=== PATIENT | male | born 1995 | race Caucasian/White ===

== ENCOUNTER 2020-07-19 21:02 | Emergency (ER) | payer MEDICAID, SELFPAY ==
[2020-07-19 21:12] VITALS: BP 143/79; PULSE 96; RESP 18; TEMP 36.6; O2SAT 100; BMI 25.2
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
[2020-07-19 22:25] LABS: MANUAL DIFF FLAG NO
[2020-07-19 22:27] LABS: Basophils Percent Auto 0.4 % (0-2); Eosinophils Absolute Auto 0.1 X10*3/uL (0.0-0.4); Eosinophils Percent Auto 0.5 % (0-4); Hematocrit 49.7 % (42-52); Hemoglobin 16.7 g/dl (14.0-18.0); Imm Gran Abs Auto 0.05 X10*3/uL (0.00-0.03); Imm Gran Pct Auto 0.5 % (0.0-0.4); Lymphocytes Absolute Auto 1.4 X10*3/uL (1.2-4.9); Mean Corpuscular HGB Conc 33.6 g/dl (31.0-36.0); Mean Corpuscular Volume 86.4 fL (80-98); Mean Platelet Volume 9.3 fL (9.4-12.4); Monocytes Absolute Auto 0.9 X10*3/uL (0.1-1.2); Monocytes Percent Auto 8.2 % (2-11); Neutrophils Absolute Auto 8.5 X10*3/uL (2.0-8.3); Neutrophils Percent Auto 77.4 % (45-73); Platelet Count 330 X10*3/uL (160-400); Red Blood Count 5.75 X10*6/uL (4.60-5.80); Red Cell Distribution Width 12.6 % (11.0-16.0); White Blood Count 10.9 X10*3/uL (4.8-10.8)
[2020-07-19] MEDS: Magnesium Hydrox/Alum Hydrox 30 ML ORAL.SUSP PO (22:29)
[2020-07-19] MEDS: Lidocaine HCl Viscous 2 % 15 ML SOLUTION 10 ML MUCOUS MEM (22:29)
[2020-07-19] MEDS: hydrOXYzine HCL 50 MG TABLET PO (22:29)
[2020-07-19 22:55] LABS: Ethanol < 10 mg/dL
[2020-07-19 22:57] LABS: Alanine Aminotransferase 9 U/L (0-40); Albumin Level 4.8 g/dL (3.5-5.0); Alkaline Phosphatase 59 U/L (39-117); Anion Gap 17 (12-20); Aspartate Amino Transferase 14 U/L (5-37); Bilirubin Total 0.6 mg/dL (0.0-1.0); Blood Urea Nitrogen 15 mg/dL (9-16); Calcium 9.5 mg/dL (8.4-10.2); Carbon Dioxide 23 mmol/L (22-29); Chloride 104 mmol/L (96-108); Creatinine Clr Calc Pharmacy 107.4; Estimated Glomerular Filt Rate > 60; Glucose Random 107 mg/dL (60-115); Sodium 140 mmol/L (135-145); Total Protein 8.4 g/dL (6.5-8.0)
[2020-07-20 00:37] VITALS: BP 128/65; PULSE 66; RESP 16; O2SAT 98
--- NOTE | 2020-07-20 02:07 | MHC.CARE ---
Pt referred to N, called and confirmed with Lisa.
[2020-07-20 04:00] VITALS: RESP 18
[2020-07-20 07:40] VITALS: RESP 16
[2020-07-20] MEDS: Nicotine 21 MG PATCH.TD24 TRANSDERMA (13:19)
[2020-07-20] MEDS: LORazepam 1 MG TABLET 2 MG PO ×2 (13:22→17:32)
--- NOTE | 2020-07-20 13:23 | PC.NURSE ---
Pt medicated w/ PRN ativan r/t anxiety
[2020-07-20 14:00] VITALS: RESP 16
[2020-07-20 16:49] VITALS: BP 118/59; PULSE 82; RESP 18; TEMP 36.9
[2020-07-20 18:02] LABS: Amphetamine Screen Urine Not Detected (Not Detect); Barbiturates, Urine Not Detected (Not Detect); Benzodiazepines Screen Urine Not Detected (Not Detect); Cannabinoid Screen Urine POSITIVE (Not Detect); Cocaine Screen Urine Not Detected (Not Detect); Opiate Screen Urine Not Detected (Not Detect); Phencyclidine Screen Urine Not Detected (Not Detect)
--- NOTE | 2020-07-20 19:30 | PC.NURSE ---
Patient just got transferred from main ED, ambulatory w/o gait deficit, wanted to see N clinician as soon as possible, patient made aware of the process, currently watching TV, no distress observed/reported, will continue to monitor.
[2020-07-20 20:47] LABS: COVID-19 Test Negative (Negative)
[2020-07-20 22:22] VITALS: BP 129/82; PULSE 86; RESP 17; TEMP 37.1; O2SAT 99
[2020-07-21 02:26] VITALS: BP 129/80; PULSE 67; RESP 16; TEMP 36.4; O2SAT 99
--- NOTE | 2020-07-21 07:19 | PC.NURSE ---
Report received from CARLOS EDUARDO Benjamin. Pt resting, respo unlabored.
[2020-07-21] MEDS: LORazepam 1 MG TABLET 2 MG PO (09:51)
[2020-07-21 09:57] VITALS: BP 124/77; PULSE 95; TEMP 36; O2SAT 98
--- NOTE | 2020-07-21 10:03 | PC.NURSE ---
Pt anxious about discharge, states he has providers through [facility]. Per provider, pt has not seen in several months, and needs to have psych consult before being discharged. M5 called to confirm consult. Pt aware, reporting anxiety. Pt medicated with ativan as requested.
--- NOTE | 2020-07-21 11:32 | PC.NURSE ---
Spoke w/ Dr Lechuga re: consultMD to speak w/ Bienvenido Sylvester. Pt anxious, requesting to discharge. Pt attempted to call Lawrence Williamson to set up follow up appt but Lawrence Williamson unable to make the appointment today.
--- NOTE | 2020-07-21 12:05 | PC.NURSE ---
CARE team in to consult, provider in to evaluate. Pt given discharge instructions, verbalized understanding, adamantly denies si/hi. Pt arranging for transportation with family. No concerns reported.
== END 2020-07-21 12:10 | disposition home or self-care (01) ==
PROVIDERS: Nurse Practitioner Family; Student in an Organized Health Care Education/Training Program; Emergency Provider Emergency Medicine Emergency Medical Services
DX: F43.0 Acute stress reaction (principal); F33.1 Major depressive disorder, recurrent, moderate; F12.90 Cannabis use, unspecified, uncomplicated; Z79.899 Other long term (current) drug therapy; Z20.822 Contact with and (suspected) exposure to COVID-19
CPT/HCPCS: 36415; 80053; 80307; 80320; 85025; 87635; 99285

== ENCOUNTER 2022-12-12 10:16 | Emergency (ER) | payer OTHER, SELFPAY ==
[2022-12-12 10:24] VITALS: BP 119/71; PULSE 79; RESP 19; TEMP 36.6; O2SAT 98; BMI 22.1
--- NOTE | 2022-12-12 12:28 | ED.GENADULT ---
HPI - General Adult General Chief complaint: Wound/Laceration Stated complaint: bit by a bug? abscess? Time Seen by Provider: 12/12/22 11:03 Source: patient Mode of arrival: ambulatory Limitations: no limitations History of Present Illness HPI narrative: 27-year-old male presents to ED for left shoulder abscess. Patient states it was small and increasing size. Patient states he was bit by insects, but does not know what. patient denies any drug use in shoulder. Patient states as abscess increased in size yesterday he tried to drain it on his own an abscess increased more in size and redness. Patient has complete range of motion of shoulder. Patient states no fever or chills. Related Data Home Medications Medication Instructions Recorded Confirmed venlafaxine 75 mg capsule,extended 75 mg PO DAILY 07/20/20 07/20/20 release 24 hr Previous Rx's Medication Instructions Recorded cephalexin 500 mg capsule 500 mg PO QID 7 days #28 caps 12/12/22 doxycycline hyclate 100 mg capsule 100 mg PO BID 7 days #14 caps 12/12/22 naproxen 500 mg tablet 500 mg PO BID PRN pain 7 days #14 12/12/22 tabs Allergies Allergy/AdvReac Type Severity Reaction Status Date / Time No Known Allergies Allergy Verified 12/12/22 10:24 [No Known Allergies*] Review of Systems Review of Systems: Left shoulder abscess Yes all other systems are reviewed and are negative PMFSH Past Medical History Medical History Anxiety Depression Social History Social History Alcohol intake: never Advance Directives: No Physical Exam ED Vital Signs: Vital Signs - 24 hr 12/12/22 10:24 Temperature 98 F Pulse Rate 79 Respiratory Rate 19 Blood Pressure 119/71 Pulse Oximetry 98 Oxygen Delivery Method Room Air BMI result Body Mass Index 22.1 Const General: cooperative, healthy appearing, comfortable, no acute distress, well developed, alert, awake and Physically active Orientation/consciousness: oriented to person, oriented to place, oriented to time and patient oriented x3 HENMT Head: Yes normal to inspection, Yes No palpable skull fracture present, Yes normocephalic, Yes atraumatic and No abrasion Eyes General: appearance normal, both eyes and all related structures Neck Neck: Yes normal visual inspection, Yes full ROM, Yes no lymphadenopathy, Yes no meningeal signs, Yes trachea midline, Yes supple, No anterior neck swelling and No tender Chest Chest palpation & inspection: normal inspection of the chest and normal palpation of entire chest wall Resp Effort & Inspection: normal respiratory effort and able to speak in complete sentences Auscultation: clear to auscultation bilaterally Cardio Jugular venous distension: no JVD Heart sounds: S1 normal heart sound present and S2 normal heart sound present GI Inspection: Yes normal to inspection Palpation (GI): Soft to palpation, not firm, nontender, no guarding and not rigid General: No CVA tenderness and Yes no CVA tenderness Back/Spine/Pelvis Back: no CVA tenderness, No CVA tenderness and No back tenderness Skin Other: left shoulder abscess General skin exam: no rashes or lesions noted and elasticity normal Neuro General: oriented to person, oriented to place, oriented to time, patient oriented x3, gait normal, tone normal, moves all extremities, Normal light touch and pain sensation, no meningeal signs, no focal motor deficits, CN's II-XI intact bilaterally and normal sensation to monofilament Extrem General: Yes normal to inspection and Yes full ROM Shoulder/upper arm images: 1. superficial mass with erythema fluctuance, warmth, and drainage. Patient has complete range of motion of shoulder. Vascular neuro exam of upper extremity intact. Rest of extremity normal. Psych Appearance: grossly normal, well kempt and not disheveled Medications Administered Discontinued Medications Generic Name Dose Route Start Last Admin Trade Name Freq PRN Reason Stop Dose Admin Lidocaine HCl 2 ml 12/12/22 11:12 12/12/22 12:03 Lidocaine Hcl 2% 2 Ml Vial INFILTRATI 12/12/22 11:13 2 ml ONCE ONE Administration Lidocaine HCl 2 ml 12/12/22 11:12 12/12/22 12:03 Lidocaine Hcl 2% 2 Ml Vial INFILTRATI 12/12/22 11:13 2 ml ONCE ONE Administration Lidocaine HCl 2 ml 12/12/22 11:12 12/12/22 12:03 Lidocaine Hcl 2% 2 Ml Vial INFILTRATI 12/12/22 11:13 2 ml ONCE ONE Administration Lidocaine HCl 2 ml 12/12/22 11:12 12/12/22 12:03 Lidocaine Hcl 2% 2 Ml Vial INFILTRATI 12/12/22 11:13 2 ml ONCE ONE Administration Medical Decision Making Medical Decision Making MDM Narrative: 27-year-old male presents to ED for left shoulder superficial abscess. Patient bit by insects but does not know which 1. Patient denies any IV drug use into area. Patient states no fever or chills. Patient has complete range of motion of left shoulder. Negative for red streaks of left upper extremity to indicate lymphangitis. not suspecting DVT. not suspecting septic joint. Abscess cleaned with sterile saline Betadine iodine. 8 mL lidocaine 1% placed for anesthesia. Size 11 blade used for incision. Large amounts of yellow pus was drained. Forceps were used to open pocket. Normal saline was used in wound to washout. Packing placed and dressing placed. Patient up-to-date with tetanus. Differential Diagnosis Differential Diagnoses: The differential diagnosis associated with the presentation includes ( Septic joint, abscess, cellulitis, DVT, lymphangitis) Admission/Observation Consideration of admission/observation: Escalation of care including admission/observation considered Independent Historian Clinical information obtained from an independent historian. History obtained from or confirmed by: Other (Triage) Prescription Management I considered prescription management with: Pain Medication and Antibiotic Discharge Plan Discharge Clinical Impression: Abscess Patient Disposition: Home, Self-Care Instructions: Abscess Incision and Drainage (DC) Additional Instructions: return to the ED in 3 days for repacking and wound evaluation. Return to the ED immediately for any fever, chills, worsening redness, swelling of upper extremity, numbness /tingling, red streaks of extremity, chest pain, shortness of breath, so, or any other concerning symptoms. Please follow up with PCP. Prescriptions: New cephalexin 500 mg capsule 500 mg PO QID 7 Days Qty: 28 0RF doxycycline hyclate 100 mg capsule 100 mg PO BID 7 Days Qty: 14 0RF naproxen 500 mg tablet 500 mg PO BID PRN (Reason: pain) 7 Days Qty: 14 0RF No Action venlafaxine 75 mg capsule,extended release 24hr 75 mg PO DAILY Stand Alone Forms: Work/School Release Interventions: ED Discharge Assessment Last Done: 12/12/22 12:47 Discharge Date/Time: 12/12/22 12:48 Print Language: Mozambican
== END 2022-12-12 12:48 | disposition home or self-care (01) ==
PROVIDERS: Emergency Provider Emergency Medicine Emergency Medical Services
DX: L02.414 Cutaneous abscess of left upper limb (principal); Z79.899 Other long term (current) drug therapy
CPT/HCPCS: 10060; 99282; 99284

== ENCOUNTER 2022-12-15 10:23 | Emergency (ER) | payer OTHER, SELFPAY ==
[2022-12-15 11:18] VITALS: BP 132/78; PULSE 89; RESP 14; O2SAT 99; BMI 20.1
--- NOTE | 2022-12-15 11:22 | ED.GENADULT ---
HPI - General Adult General Chief complaint: Wound/Laceration Stated complaint: WOUND Time Seen by Provider: 12/15/22 11:22 Source: patient Mode of arrival: ambulatory Limitations: no limitations History of Present Illness HPI narrative: Patient is a 27 year old assigned male at with a history of incision and drainage of a left upper arm abscess on 12/12/2022 presenting to the emergency department today for packing removal and repacking of his previous incision and drainage site. Patient states that 3 days ago he had a large abscess on his left upper arm opened and packed. Patient states that he is already following with the wound center and today he just needs his packing taken out and repacked. Patient denies any dizziness, lightheadedness, abdominal pain, nausea, vomiting, fever, chills, blurry vision, double vision, loss of vision, chest pain, difficulty breathing, shortness of breath, back pain, night sweats, pain with urination, increased urinary frequency, increased urinary urgency, blood in his urine or stool, syncope or a near syncopal episode, recent trauma or falls, bowel incontinence, bladder incontinence, bowel retention, bladder retention, or any other complaints at this time. Location: left and upper extremity Radiation: non-radiation Severity: mild Severity scale (1-10): 2 Relieving factors: none Exacerbating factors: none Associated symptoms: denies other symptoms Treatments prior to arrival: none Related Data Home Medications Medication Instructions Recorded Confirmed venlafaxine 75 mg capsule,extended 75 mg PO DAILY 07/20/20 07/20/20 release 24 hr Previous Rx's Medication Instructions Recorded cephalexin 500 mg capsule 500 mg PO QID 7 days #28 caps 12/12/22 doxycycline hyclate 100 mg capsule 100 mg PO BID 7 days #14 caps 12/12/22 naproxen 500 mg tablet 500 mg PO BID PRN pain 7 days #14 12/12/22 tabs Allergies Allergy/AdvReac Type Severity Reaction Status Date / Time No Known Allergies Allergy Verified 12/12/22 10:24 [No Known Allergies*] Review of Systems Constitutional: Constitutional: Reports no additional constitutional complaints, Denies chills, Denies fever(s) and Denies night sweats Eyes: Eyes: Reports no additional eye complaints, Denies blurry vision, Denies change in vision, Denies diplopia, Denies eye discharge, Denies loss of vision and Denies eye pain ENT: Denies dizziness Cardiovascular: Cardiovascular: Reports no additional cardiovascular complaints, Denies chest pain, Denies lightheadedness, Denies Loss of Consciousness and Denies dyspnea Respiratory: Respiratory: Reports no additional respiratory complaints and Denies dyspnea Gastrointestinal: Gastrointestinal: Reports no additional gastrointestinal complaints, Denies abdominal pain, Denies melena, Denies hematochezia, Denies change in bowel habits and Denies change in stool character Genitourinary: Genitourinary: Reports no additional male genitourinary complaints, Denies hematuria, Denies oliguria, Denies difficulty urinating, Denies dysuria, Denies urinary frequency, Denies urinary hesitancy, Denies urinary incontinence and Denies urinary urgency Musculoskeletal: Musculoskeletal: Reports no additional musculoskeletal complaints, Denies numbness and Denies tingling Integumentary/Breasts: Comments: incision and drainage wound to the upper left arm with packing in place Neurologic: Denies dizziness, Denies loss of vision, Denies numbness and Denies tingling Psychiatric: Psychiatric: Reports no additional psychiatric complaints Endocrine: Endocrine: Reports no additional endocrine complaints Hematologic/Lymphatic: Hematologic/Lymphatic: Reports no additional hematologic/lymphatic complaints Allergic/Immunologic: Allergic/Immunologic: Reports no additional allergic/immunologic complaints PMFSH Past Medical History Attestation statement: The following information was validated with the patient. Source: old records reviewed and nursing notes reviewed Medical History Anxiety Depression Social History Social History Alcohol intake: never Advance Directives: No Advance Directives Information Provided: Yes Physical Exam ED Vital Signs: Vital Signs - 24 hr 12/15/22 11:18 Pulse Rate 89 Respiratory Rate 14 Blood Pressure 132/78 Pulse Oximetry 99 Oxygen Delivery Method Room Air BMI result Body Mass Index 20.1 Const General: cooperative, no acute distress, alert and awake Nutritional Appearance: well nourished Orientation/consciousness: patient oriented x3 Limitations: no limitations HENMT Head: Yes normal to inspection and Yes atraumatic Ears: hearing grossly normal bilaterally and external ears normal General nose exam: Normal external nose present, no nasal discharge noted and no epistaxis Face and sinus: Yes normal facial exam, No abrasion and No laceration Mouth: Normal oral and palatal mucosa present, no drooling and no muffled voice Eyes General: appearance normal, both eyes and all related structures Periorbital: periorbital findings normal Eyelids: Yes eyelids normal Conjunctivae: conjunctivae normal Pupils: Equal, round and reactive pupils present EOM: EOMs intact bilaterally Neck Neck: Yes normal visual inspection, Yes full ROM and Yes no lymphadenopathy Chest Chest palpation & inspection: normal inspection of the chest Resp Effort & Inspection: normal respiratory effort and able to speak in complete sentences GI Inspection: Yes normal to inspection Neuro General: patient oriented x3 and moves all extremities Cranial nerves: Yes Equal, round and reactive pupils present Cognition (Neuro): normal cognition Motor exam (neuro): 5/5 motor strength present throughout Sensory Exam: Normal double simultaneous stimulation for sensation Coordination: [id number] test normal Extrem Other: incision and drainage wound present to the left upper arm with packing in place. General: Yes full ROM and Yes capillary refill normal Psych Appearance: grossly normal Mental Status: mental status grossly normal Affect: normal affect Attitude: cooperative Thought process: Normal thought process present Thought content: Normal thought content present Insight: Good insight present (Psych) Procedures Procedure Narrative Procedure Narrative: Packing removed from the left upper arm and the wound was repacked, without incident. Medical Decision Making Medical Decision Making MDM Narrative: Patient is a 27 year old assigned male at with a history of recent incision and drainage to the left upper arm presenting to the emergency department today for wound repacking. Patient's physical exam showed a previous left upper arm incision and drainage wound with packing in place. Packing was removed without incident. Wound appears to be healing well. Wound repack and dressed without incident. I explained my physical exam findings to the patient. I answered all questions asked by the patient. I stressed the importance of the patient taking his medication as prescribed. I stressed the importance of the patient following up with his primary care provider and the wound center. I stressed the importance of the patient returning to the ED in 3 days for another packing removal and possible re-packing. I stressed the importance of the patient returning to the emergency department immediately if his symptoms were to worsen or if he were to develop any dizziness, shortness of breath, difficulty breathing, chest pain, blurry vision, loss of vision, nausea, vomiting, abdominal pain, fever, chills, back pain, or any other complaints. Patient verbalized agreement and understanding with this treatment plan and discharge. Differential Diagnosis Differential Diagnoses: The differential diagnosis associated with the presentation includes Wound packing removal Incision and drainage wound Wound check Discharge Plan Discharge Clinical Impression: Abscess packing removal Patient Disposition: Home, Self-Care Instructions: Bandage Change (ED) Additional Instructions: Come back to the ER for wound re-evaluation and packing removal in 3 days (on 12/18/2022). Follow up with your primary care provider and the wound center. Continue taking your antibiotics. Return to the emergency department immediately if your symptoms worsen or if you develop any dizziness, shortness of breath, difficulty breathing, chest pain, blurry vision, loss of vision, nausea, vomiting, abdominal pain, fever, chills, back pain, or any other complaints. Prescriptions: No Action venlafaxine 75 mg capsule,extended release 24hr 75 mg PO DAILY cephalexin 500 mg capsule 500 mg PO QID 7 Days Qty: 28 0RF doxycycline hyclate 100 mg capsule 100 mg PO BID 7 Days Qty: 14 0RF naproxen 500 mg tablet 500 mg PO BID PRN (Reason: pain) 7 Days Qty: 14 0RF Referrals: [facility] [place] Family Medicine [Provider Group] (Call to establish and follow up with a primary care provider. If you already have a primary care provider, please follow up with them.) [facility] [place] [facility] [Provider Group] (Call to establish and follow up with a primary care provider. If you already have a primary care provider, please follow up with them.) [facility] [place] [Provider Group] (Call to establish and follow up with a primary care provider. If you already have a primary care provider, please follow up with them.) [facility] [Provider Group] (Call to establish and follow up with the wound center. ) Stand Alone Forms: Work/School Release Interventions: ED Discharge Assessment Last Done: 12/15/22 11:41 Discharge Date/Time: 12/15/22 11:41 Print Language: Kyrgyz
== END 2022-12-15 11:41 | disposition home or self-care (01) ==
PROVIDERS: Emergency Provider Emergency Medicine
DX: Z48.01 Encounter for change or removal of surgical wound dressing (principal)
CPT/HCPCS: 99282

== ENCOUNTER 2022-12-18 08:46 | Emergency (ER) | payer OTHER, SELFPAY ==
[2022-12-18 09:15] VITALS: BP 117/79; PULSE 62; RESP 16; TEMP 36.3; O2SAT 100; BMI 20.7
--- NOTE | 2022-12-18 09:20 | ED.SKABFB ---
HPI - Skin/Abscess/Foreign Bdy General Chief complaint: Skin/Abscess/Foreign Body Stated complaint: wound check Time Seen by Provider: 12/18/22 09:19 Source: patient, RN notes reviewed and old records reviewed Mode of arrival: ambulatory History of Present Illness HPI narrative: 27yo male presents to the ED for re-evaluation of left deltoid abscess s/p I&D x 6 days ago. Patient was initially seen on 12/12/22 in our ED, had I&D at that time w/packing placement, dc'd on Doxy & Keflex which he reports compliance, then seen again on 12/15 for wound check/packing removal. Admits improvement in wound size, decreased drainage, and pain. He is taking Cephalexin and Doxycycline as instructed. denies fever, chills, myalgias, or purulent drainage. Onset (ago): day(s) (6) Related Data Home Medications Medication Instructions Recorded Confirmed venlafaxine 75 mg capsule,extended 75 mg PO DAILY 07/20/20 07/20/20 release 24 hr Previous Rx's Medication Instructions Recorded cephalexin 500 mg capsule 500 mg PO QID 7 days #28 caps 12/12/22 doxycycline hyclate 100 mg capsule 100 mg PO BID 7 days #14 caps 12/12/22 naproxen 500 mg tablet 500 mg PO BID PRN pain 7 days #14 12/12/22 tabs Allergies Allergy/AdvReac Type Severity Reaction Status Date / Time No Known Allergies Allergy Verified 12/12/22 10:24 [No Known Allergies*] Review of Systems Review of Systems: Constitutional: No Fever, No Chills ENT/Mouth: No Ear Pain, No Nasal Congestion, No sore throat, No Rhinorrhea, No Swallowing Difficulty Cardiovascular: No Chest Pain, No SOB Respiratory: No Cough, No Sputum, No Wheezing Gastrointestinal: No Nausea, No Vomiting, No Abdominal pain Musculoskeletal: No joint pain, No Myalgias, No Joint Swelling Skin: + Skin Lesions, No rash Neuro: No Weakness, No Numbness, No Paresthesias Yes all other systems are reviewed and are negative Constitutional: Constitutional: Reports as per [facility] Past Medical History Attestation statement: The following information was validated with the patient. Source: old records reviewed Medical History Anxiety Depression Social History Social History Alcohol intake: never Smoked in Last 30 Days: Yes Use of substances other than those prescribed or required for medical reasons: Yes Substance Use Type: Marijuana Advance Directives: No Physical Exam Vital Signs: Vital Signs: Last Vital Signs Temp 97.4 F 12/18/22 09:15 Pulse 62 12/18/22 09:15 Resp 16 12/18/22 09:15 BP 117/79 12/18/22 09:15 Pulse Ox 100 12/18/22 09:15 O2 Del Method Room Air 12/18/22 09:15 BMI result Body Mass Index 20.7 Const: General: comfortable, no acute distress, alert and awake Orientation/consciousness: patient oriented x3 Limitations: no limitations HEENT: Head: Yes normocephalic and Yes atraumatic Ears: external ears normal General nose exam: Normal external nose present Face and sinus: Yes normal facial exam Eyes: General: appearance normal, both eyes and all related structures EOM: EOMs intact bilaterally Neck: Neck: Yes normal visual inspection and Yes no meningeal signs Resp: Effort & Inspection: normal respiratory effort and able to speak in complete sentences Cardio: Rate: regular rate Rhythm: regular rhythm Skin: Other: 2.3 cm x 1 cm open healing wound to left deltoid. Packing in place and removed. No surrounding erythema, no fluctuance/induration or expressible drainage Rashes: no rashes Neuro: General: patient oriented x3, Normal light touch and pain sensation and no meningeal signs Gait exam (Neuro): Normal gait present Extrem: General: Yes normal to inspection Left upper extremity: shoulder/upper arm Details: penetrating wound (Left deltoid ) Medical Decision Making Medical Decision Making MDM Narrative: 27yo male presents to the ED for re-evaluation of left deltoid abscess s/p I&D x 6 days ago. Patient was initially seen on 12/12/22 in our ED, had I&D at that time w/packing placement, dc'd on Doxy & Keflex which he reports compliance, then seen again on 12/15 for wound check/packing removal. On exam VSS, nontoxic appearing, NAD. Exam as above w/appropriately healing wound to left deltoid without surrounding erythema, fluctuance/induration or drainage. Nontender. Packing removed. Low suspicion for persistent abscess/bacteremia Xeroform and dressing applied Differential Diagnosis Differential Diagnoses: The differential diagnosis associated with the presentation includes Skin abscess, Cellulitis Unlikely Osteomyelitis, Necrotizing facitis External Record Review External record reviewed: Inpatient record, Office record, Outpatient record, Prior outpatient labs, Prior outpatient radiology, Primary care record and Outside ED record Prescription Management I considered prescription management with: Antibiotic Discharge Plan Discharge Clinical Impression: Visit for wound check Patient Disposition: Home, Self-Care Instructions: Abscess Follow-up (ED) Additional Instructions: Continue taking previously prescribed antibiotics. Keep wound clean. If begins to look infected is red, there is drainage from the area or you have fever return to the Prescriptions: No Action venlafaxine 75 mg capsule,extended release 24hr 75 mg PO DAILY cephalexin 500 mg capsule 500 mg PO QID 7 Days Qty: 28 0RF doxycycline hyclate 100 mg capsule 100 mg PO BID 7 Days Qty: 14 0RF naproxen 500 mg tablet 500 mg PO BID PRN (Reason: pain) 7 Days Qty: 14 0RF Referrals: Physician,Unknown J [Primary Care Provider] - Stand Alone Forms: Work/School Release Interventions: ED Discharge Assessment Last Done: 12/18/22 10:28 Discharge Date/Time: 12/18/22 10:29
== END 2022-12-18 10:29 | disposition home or self-care (01) ==
PROVIDERS: Emergency Provider Emergency Medicine Emergency Medical Services
DX: Z48.00 Encounter for change or removal of nonsurgical wound dressing (principal)
CPT/HCPCS: 99282; 99284